=== PATIENT | male | born 1990 | race Caucasian/White ===

== ENCOUNTER 2016-04-25 14:12 | Emergency (ER) | payer SELFPAY ==
[~2016-04-25 14:12] MED LIST: CEPHALEXIN 500 MG CAP PO SCH
[2016-04-25 14:19] VITALS: RESP 16
[2016-04-25] MEDS ORDERED: TDAP ADULT 0.5 ML INJ (BOOSTRIX) IM ONE (15:40)
--- NOTE | 2016-04-25 15:40 | EDPHY ---
H & P Smoking Status: Former smoker Time Seen by Provider: 04/25/16 14:37 HPI/ROS: CHIEF COMPLAINT: Laceration left thumb HISTORY OF PRESENT ILLNESS: 26-year-old male presents to the emergency department with a laceration to his left thumb. The incident happened last evening when he cut it on a lid of a tin can. He presents to the emergency department now over 15 hours later for evaluation. He is unsure of his last tetanus shot. He is right-hand dominant. ROS: He denies numbness or tingling in his fingers, retained foreign body, bony injury, pain in his other fingers or his left wrist. (Azucena Julio) Past Medical/Surgical History: Negative (Azucena Julio) Social History: Single (Azucena Julio) Physical Exam: On examination the patient has a 2 cm flap laceration to the palmar aspect of the left thumb overlying the proximal phalanx. Slow active bleeding is noted. No signs of infection. No evidence of retained foreign body. No palpable bony tenderness. Full range of motion of his left thumb. Normal sensation to light touch with normal 2 point discrimination. (Azucena Julio) Constitutional: Initial Vital Signs Temperature (C) 36.5 C 04/25/16 14:16 Heart Rate 94 04/25/16 14:16 Respiratory Rate 16 04/25/16 14:16 Blood Pressure 124/71 H 04/25/16 14:16 O2 Sat (%) 97 04/25/16 14:16 O2 Delivery Mode Room Air Allergies/Adverse Reactions: No Known Allergies Allergy (Unverified 04/25/16 14:19) Home Medications: Medication Instructions Recorded Cephalexin [Keflex] 500 mg PO QID #28 cap 04/25/16 MDM/Departure - MDM Procedures: After consent was obtained from the patient, the skin was cleansed with chlorhexidine and digital block was performed using 1% lidocaine without epinephrine and 0.5% bupivacaine without epinephrine. The wound was thoroughly cleansed and dressed. No sutures were applied since the wound is over 15 hours old. The wound was dressed. (Azucena Julio) Medications Given: Discontinued Medications Diphtheria/Tetanus/Acell Pertussis (Boostrix) 0.5 ml IM .ONCE ONE Stop: 04/25/16 15:41 Last Admin: 04/25/16 16:14 Dose: 0.5 ml ED Course/Re-evaluation: 26-year-old male presents with left thumb laceration. The patient's laceration is over 15 hours old. I explained the risk of infection with repairing the wound in the emergency department currently. The patient will be started on oral Keflex 500 mg four times daily and was told to come back to the emergency department after he has been on oral antibiotics for at least 72 hours. Patient verbalized understanding and agreed. His tetanus shot was updated. ( Azucena Julio) The patient was evaluated and managed by the Physician Gas Load Dispatcher/ Nurse Practitioner. My co-signature indicates that I have reviewed this chart and I agree with the findings and plan of care as documented. I am the secondary supervising physician. (Ana Laura Price) - Depart Disposition: Home, Routine, Self-Care Clinical Impression: Laceration of left thumb Qualifiers: Encounter type: initial encounter Qualifier Code: (S61.012A) Laceration without foreign body of left thumb without damage to nail, initial encounter Condition: Good Instructions: Laceration (ED), Acute Wound Care (ED) Additional Instructions: Keep wound dry, clean and protected. Keflex 500 mg 4 times daily for 1 week. Return to the emergency department after you have been on oral antibiotics, Keflex, for at least 72 hours. If you start the antibiotics today, you can return to the emergency department on Saturday for possible wound closure. You were given a tetanus shot today in the ER. Prescriptions: Cephalexin [Keflex] 500 mg PO QID #28 cap Referrals: [facility] [Outside] - As per Instructions
[2016-04-25 16:19] VITALS: BP 124/73; PULSE 71; TEMP 98.1; O2SAT 96
== END 2016-04-25 16:19 | disposition home or self-care (01) ==
PROC: 0HQGXZZ Repair Left Hand Skin, External Approach (ICD-10-PCS; principal; 2016-04-25)
DX: S61.012A Laceration without foreign body of left thumb without damage to nail, initial encounter (principal); Z23 Encounter for immunization; Z87.891 Personal history of nicotine dependence; W26.8XXA Contact with other sharp object(s), not elsewhere classified, initial encounter

== ENCOUNTER 2016-04-28 13:08 | Emergency (ER) | payer SELFPAY ==
[2016-04-28 13:48] VITALS: O2SAT 98
--- NOTE | 2016-04-28 15:39 | EDPHY ---
H & P Time Seen by Provider: 04/28/16 14:21 HPI/ROS: CHIEF COMPLAINT: laceration left thumb, wound check HISTORY OF PRESENT ILLNESS: Patient is a 18-year-old male who presents to the emergency department for recheck on his left thumb wound. He sustained his wound on 04/25/2016. However, his injury occurred 15 hours prior to being seen and he had no sutures placed. The patient was placed on antibiotics. Patient works as a pension adviser. He has been wearing rubber glove. He has no new pain or redness surrounding thumb. He feels that it is healing well. REVIEW OF SYSTEMS: Negative Past Medical/Surgical History: Negative Past surgical history: Negative Smoking Status: Former smoker Physical Exam: General Appearance: Alert and no distress. Head: Pupils equal. Normal. Respiratory: No respiratory distress. Cardiac: regular rate and rhythm. Extremities: patient has a 2 cm flap on the palmar aspect of his left thumb distally. There is no active bleeding. No erythema or warmth. No streaking up the finger. Neurovascular intact distally. Skin: No rashes or lesions. Neuro: [Alert. Normal mood and affect. Constitutional: Initial Vital Signs Temperature (C) 36.7 C 04/28/16 13:46 Heart Rate 84 04/28/16 13:46 Respiratory Rate 14 04/28/16 13:46 Blood Pressure 123/63 H 04/28/16 13:46 O2 Sat (%) 98 04/28/16 13:46 O2 Delivery Mode Room Air Allergies/Adverse Reactions: No Known Allergies Allergy (Unverified 04/25/16 14:19) Home Medications: Medication Instructions Recorded Cephalexin [Keflex] 500 mg PO QID #28 cap 04/25/16 Medical Decision Making Procedures: Procedure: Laceration repair. Verbal consent was obtained from the patient. The 2 cm laceration on the left thumb was anesthetized using 1% lidocaine. The wound was irrigated coronary protocol, draped and explored to its base with a gloved finger. No tendon injury or vascular injury was identified. The wound was repaired with 5 0 nylon . The wound repair was simple. The procedure was performed by myself. ED Course/Re-evaluation: In the emergency department I discussed treatment options with the patient. Patient does have a thumb laceration flap that occurred on 04/25. He has been on antibiotics. I feel he can have delayed closure at this time. I discussed the risks and benefits. Patient consented to have in his wound dressed. Prior to leaving I discussed wound care instructions. The patient was told not to submerge his finger in disorder. He should not wear rubber glove for work or continue to work with his left hand until sutures are removed. Differential Diagnosis: My differential includes but is not limited to laceration, abscess, cellulitis, ligamentous injury, vascular injury Departure - Departure Disposition: Home, Routine, Self-Care Clinical Impression: Laceration, left thumb laceration Condition: Good Instructions: Laceration (ED) Additional Instructions: You should not use your left hand at work until sutures are removed. Take your entire course of antibiotics. Have your sutures removed in 7 days. Return if increased redness, pain, discharge or any other concerns. Referrals: NONE *PRIMARY CARE P,. [Primary Care Provider] - As per Instructions Anna Conrad MD [Medical Doctor] - As per Instructions Stand Alone Forms: Work Excuse
[2016-04-28 16:20] VITALS: BP 130/70; PULSE 80; RESP 16; TEMP 97.3
== END 2016-05-05 13:27 | disposition home or self-care (01) ==
PROC: 0HQGXZZ Repair Left Hand Skin, External Approach (ICD-10-PCS; principal; 2016-04-28)
DX: S61.012A Laceration without foreign body of left thumb without damage to nail, initial encounter (principal); Z87.891 Personal history of nicotine dependence; X58.XXXA Exposure to other specified factors, initial encounter